=== PATIENT | male | born 1970 | race Caucasian/White ===

== ENCOUNTER 2017-07-29 13:14 | Day surgery (SDC) | payer MEDICAID ==
[~2017-07-29] VITALS: Ht 175.3 cm; Wt 95.3 kg
[2017-07-29 13:18] VITALS: BP 147/85
[2017-07-29 13:52] VITALS: BP 147/85; BP 148/93
--- NOTE | 2017-07-29 14:01 | Procedure Note ---
Procedure detail Date of procedure: 07/29/17 Anesthesiologist: Forrest Belol Complications: None Pre-procedure diagnosis: Degenerative disc disease lumbar spine multiple levels. Lumbar radiculopathy symptoms. Post-procedure diagnosis: Same. Indications for procedure: Very pleasant 46-year-old white male that presents to our procedure clinic today for lumbar epidural steroid injections L4-5 level. Patient's lumbar MRI shows degenerative disc disease multiple levels with multilevel disc bulge. Patient describes his pain as constant, dull, aching lumbar spine. Also, bilateral leg radiculopathy symptoms. Procedure detail: Procedure: Lumbar epidural steroid injection under fluoroscopy Informed consent was obtained and the risks and benefits of the procedure were explained to the patient. The patient was taken to the procedure room and noninvasive monitors placed, including noninvasive blood pressure cuff and pulse oximeter. The back was viewed using C-arm Fluoroscopy and prepped using Betadine as a cleansing solution and the L4-L5 interspace was palpated. Skin and subcutaneous tissues were anesthetized using lidocaine 1.5% and a 25-gauge needle. After this, an 18-gauge Touhy epidural needle was placed into the L4-L5 interspace and advanced using fluoroscopic guidance and loss of resistance to air until the epidural space was encountered. After confirmation of needle placement in the epidural space, with dye, a solution containing lidocaine 1.5%, 4 mL and Depo-Medrol 80 mg were incrementally injected into the lumbar epidural space. The patient tolerated the procedure well with no complications. The patient was observed in the Pain Clinic and then discharged home neurologically intact. Plan and disposition: Patient was reevaluated 10 minutes postprocedure he's doing very well. He'll return to see us in the pain clinic for further evaluation. I discussed in detail with the patient regarding his lumbar MRI imaging. Answered his questions. at [id number]
[2017-07-29 14:04] VITALS: BP 125/77
== END 2017-07-29 14:05 ==
LOC: PM 13:14
PROC: 3E0R3BZ Introduction of Anesthetic Agent into Spinal Canal, Percutaneous Approach (ICD-10-PCS; principal; 2017-07-29)
PROC: 3E0R33Z Introduction of Anti-inflammatory into Spinal Canal, Percutaneous Approach (ICD-10-PCS; 2017-07-29)
DX: M51.16 Intervertebral disc disorders with radiculopathy, lumbar region (principal)